=== PATIENT | female | born 1930 | race Caucasian/White ===

== ENCOUNTER 2016-04-27 11:55 | Emergency (ER) | payer MEDICARE ==
[2016-04-27] MEDS ORDERED: DOXYCYCLINE HYCLATE 100 MG TABLET ONE (12:44)
[2016-04-27] MEDS ORDERED: DIPHTH,PERTUSS(ACELL),TET VAC 0.5 ML VIAL IM V ONE (12:44)
== END 2016-04-27 13:09 | disposition home or self-care (01) ==
LOC: ED 11:55
DX: T25.221A Burn of second degree of right foot, initial encounter (principal); T31.0 Burns involving less than 10% of body surface; B96.89 Other specified bacterial agents as the cause of diseases classified elsewhere; Z23 Encounter for immunization; X11.8XXA Contact with other hot tap-water, initial encounter; Y92.9 Unspecified place or not applicable
CPT/HCPCS: 90715; 90471; 99283 ×2; A9270